=== PATIENT | male | born 1955 | race Caucasian/White ===

== ENCOUNTER 2022-11-01 15:27 | Inpatient (IN) | payer MEDICARE, OTHER ==
[~2022-11-01] VITALS: Ht 175.3 cm; Wt 77.0 kg
[2022-11-01] MEDS ORDERED: OxyCODONE HCL/ACETAMINOPHEN 10-325 MG TABLET PO PRN (20:15)
[2022-11-01] MEDS ORDERED: NITROGLYCERIN 0.4 MG SUBLINGUAL TABLET #25 SL PRN (20:15)
[2022-11-01 21:00] VITALS: BP 95/46
[2022-11-01] MEDS ORDERED: MELATONIN 5 MG TABLET PO SCH (21:00)
[2022-11-01] MEDS: METOPROLOL TARTRATE 25 MG TABLET PO SCH (21:00)
[2022-11-01] MEDS ORDERED: DEXTROSE 50%-WATER 25 GM/50 ML SYRINGE IVP PRN (21:00)
[2022-11-01 21:40] LABS: GLUCOMETER DEV NAME(LOC) 2WR.2B; GLUCOSE,POINT OF CARE 173 MG/DL (70-110)
[2022-11-01] MEDS: DOCUSATE SODIUM 100 MG CAPSULE PO SCH (21:53)
[2022-11-01] MEDS: LevETIRAcetam 500 MG TABLET PO SCH (21:54)
[2022-11-01] MEDS: ATORVASTATIN CALCIUM 20 MG TABLET PO SCH (21:54)
[2022-11-01] MEDS: SENNOSIDES 8.6 MG TABLET PO SCH (21:54)
[2022-11-01] MEDS: ETHYL ALCOHOL 62% ANTISEPTIC NASAL SANITIZER 0.6 ML AMPUL NASAL SCH (22:08)
[2022-11-01] MEDS: INSULIN LISPRO 100 UNITS/ML SQ PRN (22:15)
[2022-11-02] MEDS: ACETAMINOPHEN 325 MG TABLET PO SCH ×4 (00:16→23:41)
[2022-11-02] MEDS: HEPARIN SODIUM,PORCINE 5,000 UNITS/ML VIAL SQ SCH ×4 (00:16→23:42)
[2022-11-02] MEDS ORDERED: PNEUMOCOCCAL VACCINE POLYVALENT 0.5 ML VIAL [PPSV23] IM. ONE (05:15)
[2022-11-02 07:01] LABS: GLUCOMETER DEV NAME(LOC) 2WR.2B; GLUCOSE,POINT OF CARE 149 MG/DL (70-110)
[2022-11-02 07:29] LABS: BASOPHILS % (AUTO) 0.8 % (0.0-2.0); EOSINOPHILS % (AUTO) 1.7 % (1.0-6.0); HEMOGLOBIN 10.2 g/dL (13.5-17.5); LYMPHOCYTES # (AUTO) 1.7 K/uL (1.0-4.8); LYMPHOCYTES % (AUTO) 35.3 % (22.0-44.0); MEAN CORPUSCULAR HEMOGLOBIN 28.8 pg (26.0-34.0); MEAN CORPUSCULAR HGB CONC 32.9 G/dL (31.0-37.0); MEAN CORPUSCULAR VOLUME 88 fL (80-100); MONOCYTES # (AUTO) 0.4 K/uL (0.1-1.0); MONOCYTES % (AUTO) 7.3 % (2.0-9.0); NEUTROPHILS # (AUTO) 2.7 K/uL (1.8-7.7); NEUTROPHILS % (AUTO) 54.9 % (40.0-70.0); PLATELET COUNT (AUTO) 291 K/uL (150-450); RED BLOOD CELL COUNT(AUTO) 3.53 MIL/uL (4.50-5.90); RED CELL DISTRIBUTION WIDTH 13.7 % (11.5-14.5)
[2022-11-02 07:51] LABS: ALANINE AMINOTRANSFERASE 21 U/L (12-78); ALBUMIN 3.6 g/dL (3.4-5.0); ALKALINE PHOSPHATASE 66 U/L (46-116); ANION GAP 9 mmol/L (8-16); ASPARTATE AMINOTRANSFERASE 16 U/L (15-37); BILIRUBIN,TOTAL 0.3 mg/dL (0.1-1.0); CALCIUM, TOTAL 9.5 mg/dL (8.8-10.5); CARBON DIOXIDE 24 mmol/L (22-29); CHLORIDE 106 mmol/L (98-107); CREATININE 0.77 mg/dL (0.60-1.30); GLOMERULAR FILTR. RATE CALC > 60 mL/min (>60); GLUCOSE,RANDOM 169 mg/dL (70-110); SODIUM SERUM 139 mmol/L (136-145); TOTAL PROTEIN, SERUM 7.2 g/dL (6.4-8.2); UREA NITROGEN, BLOOD 18 mg/dL (7-18)
[2022-11-02] MEDS: LISINOPRIL 5 MG TABLET PO SCH (08:25)
[2022-11-02] MEDS: TAMSULOSIN HCL 0.4 MG CAPSULE PO SCH (08:25)
[2022-11-02] MEDS: CHOLECALCIFEROL (VIT D3) 2,000 UNITS [50 MCG] TABLET PO SCH (08:25)
[2022-11-02] MEDS: DOCUSATE SODIUM 100 MG CAPSULE PO SCH ×2 (08:25→20:53)
[2022-11-02] MEDS: LevETIRAcetam 500 MG TABLET PO SCH ×2 (08:25→20:53)
[2022-11-02] MEDS: METOPROLOL TARTRATE 25 MG TABLET PO SCH ×2 (08:25→20:53)
[2022-11-02] MEDS: POLYETHYLENE GLYCOL 3350 17 GM PACKET PO SCH (08:25)
[2022-11-02] MEDS: PredniSONE 10 MG TABLET PO SCH (08:26)
[2022-11-02] MEDS: ETHYL ALCOHOL 62% ANTISEPTIC NASAL SANITIZER 0.6 ML AMPUL NASAL SCH ×2 (08:26→21:01)
[2022-11-02] MEDS: INSULIN LISPRO 100 UNITS/ML SQ SCH ×3 (08:53→18:14)
[2022-11-02] MEDS: INSULIN LISPRO 100 UNITS/ML SQ PRN ×3 (08:54→18:15)
[2022-11-02] MEDS ORDERED: PredniSONE 10 MG TABLET PO SCH (09:00)
[2022-11-02 09:10] VITALS: BP 111/72
[2022-11-02] MEDS ORDERED: INSULIN GLARGINE,HUM.REC.ANLOG 100 UNITS/ML SQ SCH (12:00)
[2022-11-02 12:26] LABS: GLUCOMETER DEV NAME(LOC) 2WR.2B; GLUCOSE,POINT OF CARE 270 MG/DL (70-110)
[2022-11-02 18:06] LABS: GLUCOMETER DEV NAME(LOC) 2WR.2B; GLUCOSE,POINT OF CARE 174 MG/DL (70-110)
[2022-11-02] MEDS: SENNOSIDES 8.6 MG TABLET PO SCH (20:53)
[2022-11-02] MEDS: ATORVASTATIN CALCIUM 20 MG TABLET PO SCH (20:53)
[2022-11-02] MEDS: GABAPENTIN 300 MG CAPSULE PO SCH (20:53)
[2022-11-02] MEDS: MELATONIN 5 MG TABLET PO SCH (20:54)
[2022-11-02 21:00] VITALS: BP 116/62
[2022-11-02 21:56] LABS: GLUCOMETER DEV NAME(LOC) 2WR.2B; GLUCOSE,POINT OF CARE 136 MG/DL (70-110)
[2022-11-03 06:11] LABS: GLUCOMETER DEV NAME(LOC) 2WR.1C; GLUCOSE,POINT OF CARE 148 MG/DL (70-110)
[2022-11-03] MEDS: INSULIN LISPRO 100 UNITS/ML SQ PRN ×4 (08:52→22:27)
[2022-11-03] MEDS: INSULIN LISPRO 100 UNITS/ML SQ SCH ×3 (08:56→18:04)
[2022-11-03] MEDS: POLYETHYLENE GLYCOL 3350 17 GM PACKET PO SCH (09:00)
[2022-11-03] MEDS: DOCUSATE SODIUM 100 MG CAPSULE PO SCH ×3 (09:00→22:20)
[2022-11-03 09:02] VITALS: BP 114/78
[2022-11-03] MEDS: ACETAMINOPHEN 325 MG TABLET PO SCH ×3 (09:04→23:34)
[2022-11-03] MEDS: PredniSONE 10 MG TABLET PO SCH (09:05)
[2022-11-03] MEDS: HEPARIN SODIUM,PORCINE 5,000 UNITS/ML VIAL SQ SCH ×3 (09:05→23:34)
[2022-11-03] MEDS: ETHYL ALCOHOL 62% ANTISEPTIC NASAL SANITIZER 0.6 ML AMPUL NASAL SCH ×2 (09:05→22:16)
[2022-11-03] MEDS: CHOLECALCIFEROL (VIT D3) 2,000 UNITS [50 MCG] TABLET PO SCH (09:06)
[2022-11-03] MEDS: LISINOPRIL 5 MG TABLET PO SCH (09:06)
[2022-11-03] MEDS: METOPROLOL TARTRATE 25 MG TABLET PO SCH ×2 (09:07→22:19)
[2022-11-03] MEDS: LevETIRAcetam 500 MG TABLET PO SCH ×2 (09:07→22:17)
[2022-11-03] MEDS: TAMSULOSIN HCL 0.4 MG CAPSULE PO SCH (09:07)
[2022-11-03] MEDS ORDERED: CHOLECALCIFEROL (VIT D3) 2,000 UNITS [50 MCG] TABLET PO SCH (10:00)
[2022-11-03] MEDS: FOLIC ACID 1 MG TABLET PO SCH (10:26)
[2022-11-03] MEDS: PANTOPRAZOLE SODIUM 40 MG DR TABLET PO SCH (13:00)
[2022-11-03] MEDS: MULTIVITAMINS WITH MINERALS, THERAPEUTIC TABLET PO SCH (13:00)
[2022-11-03] MEDS: INSULIN GLARGINE,HUM.REC.ANLOG 100 UNITS/ML SQ SCH (13:02)
[2022-11-03 13:36] LABS: GLUCOMETER DEV NAME(LOC) 2WR.2B; GLUCOSE,POINT OF CARE 162 MG/DL (70-110)
[2022-11-03] MEDS: CHLORHEXIDINE GLUCONATE 4% 118 ML TOPICAL LIQUID TP SCH (16:07)
[2022-11-03 17:17] LABS: GLUCOMETER DEV NAME(LOC) 2WR.2B; GLUCOSE,POINT OF CARE 253 MG/DL (70-110)
[2022-11-03 21:00] VITALS: BP 93/59
[2022-11-03 21:05] VITALS: BP 119/66
[2022-11-03 21:45] LABS: GLUCOMETER DEV NAME(LOC) 2WR.1C; GLUCOSE,POINT OF CARE 260 MG/DL (70-110)
[2022-11-03] MEDS: CALCIUM CIT/VITAMIN D3 200 MG-250 UNITS[6.25MCG] TABLET PO SCH (22:17)
[2022-11-03] MEDS: SENNOSIDES 8.6 MG TABLET PO SCH (22:17)
[2022-11-03] MEDS: GABAPENTIN 300 MG CAPSULE PO SCH (22:17)
[2022-11-03] MEDS: ATORVASTATIN CALCIUM 20 MG TABLET PO SCH (22:17)
[2022-11-03] MEDS: MELATONIN 5 MG TABLET PO SCH (22:17)
[2022-11-04 07:16] LABS: GLUCOMETER DEV NAME(LOC) 2WR.2B; GLUCOSE,POINT OF CARE 128 MG/DL (70-110)
[2022-11-04] MEDS: HEPARIN SODIUM,PORCINE 5,000 UNITS/ML VIAL SQ SCH ×2 (08:18→16:00)
[2022-11-04] MEDS: POLYETHYLENE GLYCOL 3350 17 GM PACKET PO SCH (08:20)
[2022-11-04] MEDS: FOLIC ACID 1 MG TABLET PO SCH (08:21)
[2022-11-04] MEDS: MULTIVITAMINS WITH MINERALS, THERAPEUTIC TABLET PO SCH (08:21)
[2022-11-04] MEDS: METOPROLOL TARTRATE 25 MG TABLET PO SCH (08:21)
[2022-11-04] MEDS: PANTOPRAZOLE SODIUM 40 MG DR TABLET PO SCH (08:21)
[2022-11-04] MEDS: CALCIUM CIT/VITAMIN D3 200 MG-250 UNITS[6.25MCG] TABLET PO SCH (08:21)
[2022-11-04] MEDS: LevETIRAcetam 500 MG TABLET PO SCH (08:21)
[2022-11-04] MEDS: DOCUSATE SODIUM 100 MG CAPSULE PO SCH (08:21)
[2022-11-04] MEDS: ETHYL ALCOHOL 62% ANTISEPTIC NASAL SANITIZER 0.6 ML AMPUL NASAL SCH (08:22)
[2022-11-04] MEDS: ACETAMINOPHEN 325 MG TABLET PO SCH ×2 (08:22→16:00)
[2022-11-04] MEDS: CHLORHEXIDINE GLUCONATE 4% 118 ML TOPICAL LIQUID TP SCH (08:22)
[2022-11-04] MEDS: LISINOPRIL 5 MG TABLET PO SCH (08:24)
[2022-11-04] MEDS: TAMSULOSIN HCL 0.4 MG CAPSULE PO SCH (08:24)
[2022-11-04] MEDS: PredniSONE 10 MG TABLET PO SCH (08:25)
[2022-11-04] MEDS: INSULIN LISPRO 100 UNITS/ML SQ SCH ×2 (08:37→13:12)
[2022-11-04 08:57] VITALS: BP 118/75
[2022-11-04] MEDS ORDERED: CHOLECALCIFEROL (VIT D3) 2,000 UNITS [50 MCG] TABLET PO SCH (09:00)
[2022-11-04 11:51] LABS: GLUCOMETER DEV NAME(LOC) 2WR.1C; GLUCOSE,POINT OF CARE 192 MG/DL (70-110)
[2022-11-04] MEDS: INSULIN GLARGINE,HUM.REC.ANLOG 100 UNITS/ML SQ SCH (13:11)
[2022-11-04] MEDS: INSULIN LISPRO 100 UNITS/ML SQ PRN (13:12)
== END 2022-11-04 16:00 | DRG 57 ==
LOC: 2WR 18:46
PROVIDERS: ADMIT Physical Medicine & Rehabilitation; ATTEND Physical Medicine & Rehabilitation
PROC: 3E0234Z Introduction of Serum, Toxoid and Vaccine into Muscle, Percutaneous Approach (ICD-10-PCS; principal; 2022-11-04)
DX: G91.9 Hydrocephalus, unspecified (principal); C71.9 Malignant neoplasm of brain, unspecified; M86.8X7 Other osteomyelitis, ankle and foot; E11.51 Type 2 diabetes mellitus with diabetic peripheral angiopathy without gangrene; I10 Essential (primary) hypertension; E78.00 Pure hypercholesterolemia, unspecified; R33.8 Other retention of urine; F32.A Depression, unspecified; N40.1 Benign prostatic hyperplasia with lower urinary tract symptoms; E11.42 Type 2 diabetes mellitus with diabetic polyneuropathy; D64.9 Anemia, unspecified; E11.69 Type 2 diabetes mellitus with other specified complication; Z53.20 Procedure and treatment not carried out because of patient's decision for unspecified reasons; R26.81 Unsteadiness on feet; R41.89 Other symptoms and signs involving cognitive functions and awareness; R47.1 Dysarthria and anarthria; R53.81 Other malaise; R45.87 Impulsiveness; F11.10 Opioid abuse, uncomplicated; Z90.79 Acquired absence of other genital organ(s); Z87.891 Personal history of nicotine dependence; Z86.73 Personal history of transient ischemic attack (TIA), and cerebral infarction without residual deficits; Z83.3 Family history of diabetes mellitus; Z79.4 Long term (current) use of insulin; Z85.841 Personal history of malignant neoplasm of brain; Z86.718 Personal history of other venous thrombosis and embolism
CPT/HCPCS: 80053; 82962; 85025; 87081; 90732; 92507; 92523; 92526; 97163; 97167; 97530; 97535; 99285; J1644; J1815; Q9967

== ENCOUNTER 2024-07-09 16:52 | Inpatient (IN) | payer MEDICARE, OTHER ==
[~2024-07-09] VITALS: Ht 172.7 cm; Wt 75.3 kg
[2024-07-09 20:30] VITALS: BP 124/69; PULSE 86; RESP 18; TEMP 97.9; O2SAT 94
[2024-07-09] MEDS ORDERED: ACETAMINOPHEN 325 MG TABLET PO PRN (20:30)
[2024-07-09] MEDS ORDERED: MELATONIN 3 MG TABLET PO PRN (20:30)
[2024-07-09] MEDS ORDERED: DOCUSATE SODIUM 283 MG/5 ML MINI-ENEMA PR PRN (20:30)
[2024-07-09] MEDS ORDERED: DEXTROSE 50%-WATER 25 GM/50 ML SYRINGE IVP PRN (20:45)
[2024-07-09 21:00] VITALS: O2SAT 94
[2024-07-09] MEDS ORDERED: SENNOSIDES 8.6 MG TABLET PO SCH (21:00)
[2024-07-09] MEDS ORDERED: DOCUSATE SODIUM 100 MG CAPSULE PO SCH (21:00)
[2024-07-09] MEDS: LevETIRAcetam 500 MG TABLET PO SCH (23:33)
[2024-07-09] MEDS: FAMOTIDINE 20 MG TABLET PO SCH (23:33)
[2024-07-09] MEDS: INSULIN LISPRO 100 UNITS/ML SQ SCH (23:35)
[2024-07-09] MEDS: ETHYL ALCOHOL 62% ANTISEPTIC NASAL SANITIZER 0.6 ML AMPUL NASAL SCH (23:45)
[2024-07-09] MEDS: LATANOPROST 0.005% 2.5 ML OPHTHALMIC SOLUTION OU SCH (23:58)
[2024-07-09] MEDS: DEXAMETHASONE 4 MG TABLET PO SCH (23:59)
[2024-07-10 00:07] LABS: GLUCOMETER DEV NAME(LOC) 2WR.1D; GLUCOSE,POINT OF CARE 219 MG/DL (70-110)
[2024-07-10] MEDS: -PHARMACY VACCINE NOTE- MISC ONE (02:09)
[2024-07-10 07:16] LABS: GLUCOMETER DEV NAME(LOC) 2WR.2B; GLUCOSE,POINT OF CARE 182 MG/DL (70-110)
[2024-07-10 08:05] VITALS: BP 128/70; PULSE 88; RESP 18; TEMP 98.2; O2SAT 98
[2024-07-10] MEDS: POLYETHYLENE GLYCOL 3350 17 GM PACKET PO SCH (08:10)
[2024-07-10] MEDS: TAMSULOSIN HCL 0.4 MG CAPSULE PO SCH (08:10)
[2024-07-10] MEDS: MEMANTINE HCL 10 MG TABLET PO SCH (08:12)
[2024-07-10] MEDS: METOPROLOL TARTRATE 25 MG TABLET PO SCH (08:13)
[2024-07-10] MEDS: ATORVASTATIN CALCIUM 20 MG TABLET PO SCH (08:13)
[2024-07-10] MEDS: FOLIC ACID 1 MG TABLET PO SCH (08:14)
[2024-07-10] MEDS: FINASTERIDE 5 MG TABLET PO SCH (09:33)
[2024-07-10] MEDS: PREGABALIN 50 MG CAPSULE PO SCH (09:33)
[2024-07-10] MEDS: SENNOSIDES 8.6 MG TABLET PO SCH (09:33)
[2024-07-10] MEDS: CHOLECALCIFEROL (VIT D3) 2,000 UNITS [50 MCG] TABLET PO SCH (09:38)
[2024-07-10] MEDS: MULTIVITAMINS, THERAPEUTIC TABLET PO SCH (09:38)
[2024-07-10] MEDS: INSULIN LISPRO 100 UNITS/ML SQ SCH (10:07)
[2024-07-10 10:18] LABS: BASOPHILS % (AUTO) 0.1 % (0.0-2.0); EOSINOPHILS % (AUTO) 0.3 % (1.0-6.0); HEMOGLOBIN 17.2 g/dL (13.5-17.5); LYMPHOCYTES # (AUTO) 0.8 K/uL (1.0-4.8); LYMPHOCYTES % (AUTO) 9.5 % (22.0-44.0); MEAN CORPUSCULAR HEMOGLOBIN 30.7 pg (26.0-34.0); MEAN CORPUSCULAR HGB CONC 33.8 G/dL (31.0-37.0); MEAN CORPUSCULAR VOLUME 91 fL (80-100); MONOCYTES # (AUTO) 0.5 K/uL (0.1-1.0); MONOCYTES % (AUTO) 5.9 % (2.0-9.0); NEUTROPHILS # (AUTO) 6.7 K/uL (1.8-7.7); NEUTROPHILS % (AUTO) 84.2 % (40.0-70.0); PLATELET COUNT (AUTO) 132 K/uL (150-450); RED CELL DISTRIBUTION WIDTH 12.5 % (11.5-14.5)
[2024-07-10 10:22] LABS: ALANINE AMINOTRANSFERASE 24 U/L (12-78); ALBUMIN 3.5 g/dL (3.4-5.0); ALKALINE PHOSPHATASE 69 U/L (46-116); ANION GAP 9 mmol/L (8-16); ASPARTATE AMINOTRANSFERASE 11 U/L (15-37); BILIRUBIN,TOTAL 0.6 mg/dL (0.1-1.0); CALCIUM, TOTAL 8.5 mg/dL (8.8-10.5); CARBON DIOXIDE 26 mmol/L (22-29); CHLORIDE 102 mmol/L (98-107); CREATININE 0.82 mg/dL (0.60-1.30); GLOMERULAR FILTR. RATE CALC > 60 mL/min (>60); GLUCOSE,RANDOM 191 mg/dL (70-110); POTASSIUM 4.2 mmol/L (3.5-5.1); SODIUM SERUM 137 mmol/L (136-145); UREA NITROGEN, BLOOD 25 mg/dL (7-18)
[2024-07-10 11:55] LABS: GLUCOMETER DEV NAME(LOC) 2WR.1D; GLUCOSE,POINT OF CARE 332 MG/DL (70-110)
[2024-07-10] MEDS: INSULIN GLARGINE,HUM.REC.ANLOG 100 UNITS/ML SQ SCH (12:24)
[2024-07-10 12:35] VITALS: BP 130/74; PULSE 75; RESP 18; TEMP 98.6; O2SAT 97
[2024-07-10 18:01] LABS: GLUCOMETER DEV NAME(LOC) 2WR.1D; GLUCOSE,POINT OF CARE 220 MG/DL (70-110)
[2024-07-10 18:37] VITALS: O2SAT 98
[2024-07-10 20:30] VITALS: BP 97/66; PULSE 84; RESP 18; TEMP 98.1; O2SAT 96
[2024-07-10 21:00] VITALS: O2SAT 96
[2024-07-10] MEDS: DOCUSATE SODIUM 250 MG CAPSULE PO SCH (22:17)
[2024-07-10] MEDS ORDERED: DOCUSATE SODIUM 250 MG CAPSULE PO SCH (23:15)
[2024-07-11 02:41] LABS: GLUCOMETER DEV NAME(LOC) 2WR.1D; GLUCOSE,POINT OF CARE 137 MG/DL (70-110)
[2024-07-11 06:40] LABS: GLUCOMETER DEV NAME(LOC) 2WR.1D; GLUCOSE,POINT OF CARE 173 MG/DL (70-110)
[2024-07-11 08:15] VITALS: BP 115/71; PULSE 78; RESP 19; TEMP 97.7; O2SAT 97
[2024-07-11 09:52] VITALS: O2SAT 97
[2024-07-11 12:20] LABS: GLUCOMETER DEV NAME(LOC) 2WR.1D; GLUCOSE,POINT OF CARE 179 MG/DL (70-110)
[2024-07-11] MEDS: INSULIN GLARGINE,HUM.REC.ANLOG 100 UNITS/ML SQ SCH (12:28)
[2024-07-11 17:31] LABS: GLUCOMETER DEV NAME(LOC) 2WR.2B; GLUCOSE,POINT OF CARE 315 MG/DL (70-110)
[2024-07-11 20:01] VITALS: BP 124/73; PULSE 94; RESP 18; TEMP 98.8; O2SAT 96
[2024-07-11 21:40] LABS: GLUCOMETER DEV NAME(LOC) 2WR.2B; GLUCOSE,POINT OF CARE 262 MG/DL (70-110)
[2024-07-11 22:16] VITALS: O2SAT 96
[2024-07-12 00:51] LABS: APPEARANCE,URINE HAZY (CLEAR); BILIRUBIN,URINE NEGATIVE (NEGATIVE); COLOR,URINE LIGHT YELLOW (YELLOW); GLUCOSE, URINE (UA) 150-200 mg/dL (NEGATIVE); KETONES,URINE NEGATIVE (NEGATIVE); LEUKOCYTE ESTERASE ,URINE LARGE (NEGATIVE); NITRATE,URINE NEGATIVE (NEGATIVE); OCCULT BLOOD,URINE NEGATIVE (NEGATIVE); PH,URINE 5.5 (5.0-8.0); PROTEIN,URINE NEGATIVE (NEGATIVE); SPECIFIC GRAVITIY, URINE 1.007 (1.003-1.030); UROBILINOGEN,URINE <=1.0 mg/dL (<=1.0)
[2024-07-12 00:58] LABS: BACTERIA,URINE None Seen /HPF (None Seen); RBC,URINE None Seen /HPF (0-2); SQUAMOUS EPITHELIAL CELL,UR Few /LPF (None Seen); YEAST,URINE Many /HPF (None Seen)
[2024-07-12 07:05] LABS: GLUCOMETER DEV NAME(LOC) 2WR.1D; GLUCOSE,POINT OF CARE 178 MG/DL (70-110)
[2024-07-12 08:00] VITALS: BP 109/70; PULSE 73; RESP 19; TEMP 98.2; O2SAT 96
[2024-07-12] MEDS: FLUCONAZOLE 100 MG TABLET PO SCH (12:19)
[2024-07-12 12:40] LABS: GLUCOMETER DEV NAME(LOC) 2WR.2B; GLUCOSE,POINT OF CARE 120 MG/DL (70-110)
[2024-07-12 17:31] LABS: GLUCOMETER DEV NAME(LOC) 2WR.2B; GLUCOSE,POINT OF CARE 76 MG/DL (70-110)
[2024-07-12 19:15] VITALS: BP 119/69; PULSE 82; RESP 18; TEMP 98.2; O2SAT 96
[2024-07-12 21:31] LABS: GLUCOMETER DEV NAME(LOC) 2WR.1D; GLUCOSE,POINT OF CARE 241 MG/DL (70-110)
[2024-07-13 03:05] VITALS: O2SAT 96
[2024-07-13 06:56] LABS: GLUCOMETER DEV NAME(LOC) 2WR.2B; GLUCOSE,POINT OF CARE 286 MG/DL (70-110)
[2024-07-13 08:05] VITALS: BP 133/76; PULSE 78; RESP 18; TEMP 98.4; O2SAT 98
[2024-07-13 11:51] LABS: GLUCOMETER DEV NAME(LOC) 2WR.2B; GLUCOSE,POINT OF CARE 271 MG/DL (70-110)
[2024-07-13 15:07] VITALS: O2SAT 98
[2024-07-13 17:45] LABS: GLUCOMETER DEV NAME(LOC) 2WR.2B; GLUCOSE,POINT OF CARE 334 MG/DL (70-110)
[2024-07-13 20:01] VITALS: BP 132/75; PULSE 89; RESP 19; TEMP 98.2; O2SAT 97
[2024-07-14 03:06] VITALS: O2SAT 97
[2024-07-14 07:15] LABS: GLUCOMETER DEV NAME(LOC) 2WR.2B; GLUCOSE,POINT OF CARE 218 MG/DL (70-110)
[2024-07-14 08:00] VITALS: BP 124/74; PULSE 71; RESP 18; TEMP 97.9; O2SAT 99
[2024-07-14] MEDS: ASPIRIN 81 MG CHEWABLE TABLET PO SCH (08:33)
[2024-07-14 12:11] LABS: GLUCOMETER DEV NAME(LOC) 2WR.1D; GLUCOSE,POINT OF CARE 254 MG/DL (70-110)
[2024-07-14] MEDS: INSULIN GLARGINE,HUM.REC.ANLOG 100 UNITS/ML SQ SCH (12:28)
[2024-07-14 17:56] LABS: GLUCOMETER DEV NAME(LOC) 2WR.2B; GLUCOSE,POINT OF CARE 240 MG/DL (70-110)
[2024-07-14 20:00] VITALS: BP 112/64; PULSE 76; RESP 17; TEMP 98.1; O2SAT 95
[2024-07-14 20:45] LABS: GLUCOMETER DEV NAME(LOC) 2WR.1D; GLUCOSE,POINT OF CARE 281 MG/DL (70-110)
[2024-07-14] MEDS: DEXAMETHASONE 2 MG TABLET PO SCH (21:14)
[2024-07-15 07:01] LABS: GLUCOMETER DEV NAME(LOC) 2WR.2B; GLUCOSE,POINT OF CARE 217 MG/DL (70-110)
[2024-07-15 08:07] VITALS: BP 111/68; PULSE 70; RESP 19; TEMP 97.9; O2SAT 99
[2024-07-15 11:46] LABS: GLUCOMETER DEV NAME(LOC) 2WR.1D; GLUCOSE,POINT OF CARE 248 MG/DL (70-110)
[2024-07-15] MEDS: INSULIN GLARGINE,HUM.REC.ANLOG 100 UNITS/ML SQ SCH (13:05)
[2024-07-15 16:56] LABS: GLUCOMETER DEV NAME(LOC) 2WR.1D; GLUCOSE,POINT OF CARE 120 MG/DL (70-110)
[2024-07-15 19:39] VITALS: BP 107/72; PULSE 68; RESP 18; TEMP 98; O2SAT 99
[2024-07-15 21:56] LABS: GLUCOMETER DEV NAME(LOC) 2WR.2B; GLUCOSE,POINT OF CARE 136 MG/DL (70-110)
[2024-07-15 22:18] VITALS: O2SAT 99
[2024-07-16 07:07] LABS: GLUCOMETER DEV NAME(LOC) 2WR.2B; GLUCOSE,POINT OF CARE 207 MG/DL (70-110)
[2024-07-16 08:05] VITALS: BP 130/68; PULSE 70; RESP 19; TEMP 98; O2SAT 98
[2024-07-16 11:04] VITALS: O2SAT 98
[2024-07-16] MEDS ORDERED: INSULIN GLARGINE,HUM.REC.ANLOG 100 UNITS/ML SQ SCH (12:00)
[2024-07-16 12:16] LABS: GLUCOMETER DEV NAME(LOC) 2WR.1D; GLUCOSE,POINT OF CARE 199 MG/DL (70-110)
[2024-07-16 17:21] LABS: GLUCOMETER DEV NAME(LOC) 2WR.1D; GLUCOSE,POINT OF CARE 141 MG/DL (70-110)
[2024-07-16 20:02] VITALS: BP 123/75; PULSE 82; RESP 20; TEMP 97.9; O2SAT 97
[2024-07-16 23:51] LABS: GLUCOMETER DEV NAME(LOC) 2WR.2B; GLUCOSE,POINT OF CARE 166 MG/DL (70-110)
[2024-07-17 00:30] VITALS: O2SAT 97
[2024-07-17] MEDS ORDERED: ASPI-1450 PO (02:02)
[2024-07-17] MEDS ORDERED: FOLI-130 PO (02:03)
[2024-07-17] MEDS ORDERED: TAMS0.4C94 PO (02:03)
[2024-07-17] MEDS ORDERED: LEVE-71 PO (04:53)
[2024-07-17] MEDS ORDERED: METO25 PO (04:54)
[2024-07-17] MEDS ORDERED: ATOR20TA PO (04:54)
[2024-07-17] MEDS ORDERED: PREG50 PO (04:55)
[2024-07-17] MEDS ORDERED: MEMA10TA24 PO (04:55)
[2024-07-17] MEDS ORDERED: FAMO20 PO (04:56)
[2024-07-17] MEDS ORDERED: FINA-27 PO (04:56)
[2024-07-17] MEDS ORDERED: MULT-14 PO (04:59)
[2024-07-17] MEDS ORDERED: CHOL200059 PO (04:59)
[2024-07-17] MEDS ORDERED: XALA2.5OS OU (05:05)
[2024-07-17] MEDS ORDERED: DOCU-412 PO (05:07)
[2024-07-17] MEDS ORDERED: POLY17PO47 PO (05:10)
[2024-07-17 07:01] LABS: GLUCOMETER DEV NAME(LOC) 2WR.2B; GLUCOSE,POINT OF CARE 244 MG/DL (70-110)
[2024-07-17 08:00] VITALS: BP 118/69; PULSE 70; RESP 19; TEMP 97.8; O2SAT 98
[2024-07-17 11:51] LABS: GLUCOMETER DEV NAME(LOC) 2WR.1D; GLUCOSE,POINT OF CARE 102 MG/DL (70-110)
[2024-07-17 13:46] LABS: GLUCOMETER DEV NAME(LOC) 2WR.1D; GLUCOSE,POINT OF CARE 231 MG/DL (70-110)
[2024-07-17 17:41] LABS: GLUCOMETER DEV NAME(LOC) 2WR.1D; GLUCOSE,POINT OF CARE 130 MG/DL (70-110)
[2024-07-17 20:00] VITALS: BP 115/70; PULSE 82; RESP 18; TEMP 97.5; O2SAT 96
[2024-07-18 03:26] LABS: GLUCOMETER DEV NAME(LOC) 2WR.1D; GLUCOSE,POINT OF CARE 100 MG/DL (70-110)
[2024-07-18 08:26] LABS: GLUCOMETER DEV NAME(LOC) 2WR.1D; GLUCOSE,POINT OF CARE 165 MG/DL (70-110)
[2024-07-18 09:05] VITALS: BP 133/76; PULSE 66; RESP 18; TEMP 97.6; O2SAT 97
[2024-07-18 09:05] LABS: ANION GAP 6 mmol/L (8-16); CALCIUM, TOTAL 8.3 mg/dL (8.8-10.5); CARBON DIOXIDE 25 mmol/L (22-29); CHLORIDE 101 mmol/L (98-107); CREATININE 0.91 mg/dL (0.60-1.30); GLOMERULAR FILTR. RATE CALC > 60 mL/min (>60); GLUCOSE,RANDOM 190 mg/dL (70-110); POTASSIUM 4.2 mmol/L (3.5-5.1); SODIUM SERUM 132 mmol/L (136-145); UREA NITROGEN, BLOOD 27 mg/dL (7-18)
[2024-07-18 09:09] LABS: BASOPHILS % (AUTO) 0.2 % (0.0-2.0); EOSINOPHILS % (AUTO) 0.1 % (1.0-6.0); HEMOGLOBIN 16.1 g/dL (13.5-17.5); LYMPHOCYTES # (AUTO) 0.7 K/uL (1.0-4.8); LYMPHOCYTES % (AUTO) 7.5 % (22.0-44.0); MEAN CORPUSCULAR HEMOGLOBIN 30.5 pg (26.0-34.0); MEAN CORPUSCULAR HGB CONC 32.8 G/dL (31.0-37.0); MEAN CORPUSCULAR VOLUME 93 fL (80-100); MONOCYTES # (AUTO) 0.4 K/uL (0.1-1.0); MONOCYTES % (AUTO) 4.2 % (2.0-9.0); PLATELET COUNT (AUTO) 117 K/uL (150-450); RED BLOOD CELL COUNT(AUTO) 5.28 MIL/uL (4.50-5.90); RED CELL DISTRIBUTION WIDTH 13.1 % (11.5-14.5); WHITE BLOOD COUNT (AUTO) 9.1 K/uL (4.5-11.0)
[2024-07-18 10:59] VITALS: O2SAT 97
[2024-07-18 12:56] LABS: GLUCOMETER DEV NAME(LOC) 2WR.1D; GLUCOSE,POINT OF CARE 188 MG/DL (70-110)
[2024-07-18 17:06] LABS: GLUCOMETER DEV NAME(LOC) 2WR.1D; GLUCOSE,POINT OF CARE 250 MG/DL (70-110)
[2024-07-18 23:00] LABS: GLUCOMETER DEV NAME(LOC) 2WR.2B; GLUCOSE,POINT OF CARE 239 MG/DL (70-110)
[2024-07-18 23:48] VITALS: BP 121/64; PULSE 78; RESP 18; TEMP 98.2; O2SAT 100
[2024-07-19 00:09] VITALS: O2SAT 100
[2024-07-19 06:56] LABS: GLUCOMETER DEV NAME(LOC) 2WR.2B; GLUCOSE,POINT OF CARE 230 MG/DL (70-110)
[2024-07-19 08:00] VITALS: BP 139/84; PULSE 69; RESP 17; TEMP 97.6; O2SAT 98
[2024-07-19 11:51] LABS: GLUCOMETER DEV NAME(LOC) 2WR.2B; GLUCOSE,POINT OF CARE 123 MG/DL (70-110)
[2024-07-19 13:15] LABS: GLUCOMETER DEV NAME(LOC) 2WR.2B; GLUCOSE,POINT OF CARE 146 MG/DL (70-110)
[2024-07-19 17:21] LABS: GLUCOMETER DEV NAME(LOC) 2WR.1D; GLUCOSE,POINT OF CARE 96 MG/DL (70-110)
[2024-07-19 18:40] LABS: GLUCOMETER DEV NAME(LOC) 2WR.2B; GLUCOSE,POINT OF CARE 105 MG/DL (70-110)
[2024-07-19 20:01] LABS: GLUCOMETER DEV NAME(LOC) 2WR.2B; GLUCOSE,POINT OF CARE 141 MG/DL (70-110)
[2024-07-19 21:33] VITALS: O2SAT 96
[2024-07-19 21:48] VITALS: BP 113/67; PULSE 75; RESP 20; TEMP 97.2; O2SAT 96
[2024-07-20 06:41] LABS: GLUCOMETER DEV NAME(LOC) 2WR.2B; GLUCOSE,POINT OF CARE 119 MG/DL (70-110)
[2024-07-20 08:05] VITALS: BP 138/63; PULSE 72; RESP 18; TEMP 98.3; O2SAT 98
[2024-07-20] MEDS ORDERED: METO25 PO (11:43)
[2024-07-20] MEDS ORDERED: CHOL200059 PO (11:43)
[2024-07-20] MEDS ORDERED: INSLAN SQ (11:43)
[2024-07-20] MEDS ORDERED: ASPI-1450 PO (11:43)
[2024-07-20] MEDS ORDERED: XALA2.5OS OU (11:43)
[2024-07-20] MEDS ORDERED: DEXA2 PO (11:43)
[2024-07-20] MEDS ORDERED: FINA-27 PO (11:43)
[2024-07-20] MEDS ORDERED: PREG50 PO (11:43)
[2024-07-20] MEDS ORDERED: INSU100V SQ (11:43)
[2024-07-20] MEDS ORDERED: MEMA10TA24 PO (11:43)
[2024-07-20] MEDS ORDERED: TAMS0.4C94 PO (11:43)
[2024-07-20] MEDS ORDERED: FOLI-130 PO (11:43)
[2024-07-20] MEDS ORDERED: LEVE-71 PO (11:43)
[2024-07-20] MEDS ORDERED: FAMO20 PO (11:43)
[2024-07-20] MEDS ORDERED: ATOR20TA PO (11:43)
[2024-07-20 12:10] LABS: GLUCOMETER DEV NAME(LOC) 2WR.1D; GLUCOSE,POINT OF CARE 145 MG/DL (70-110)
[2024-07-20 13:55] VITALS: O2SAT 98
[2024-07-20 17:05] LABS: GLUCOMETER DEV NAME(LOC) 2WR.1D; GLUCOSE,POINT OF CARE 229 MG/DL (70-110)
[2024-07-20 21:00] VITALS: BP 114/60; PULSE 78; RESP 18; TEMP 97.7; O2SAT 97
[2024-07-20 23:32] VITALS: O2SAT 97
[2024-07-21 04:35] LABS: GLUCOMETER DEV NAME(LOC) 2WR.1D; GLUCOSE,POINT OF CARE 199 MG/DL (70-110)
[2024-07-21 07:05] LABS: GLUCOMETER DEV NAME(LOC) 2WR.1D; GLUCOSE,POINT OF CARE 171 MG/DL (70-110)
[2024-07-21 08:00] VITALS: BP 128/72; PULSE 70; RESP 19; TEMP 98.1; O2SAT 97
[2024-07-21] MEDS ORDERED: DEXAMETHASONE 2 MG TABLET PO SCH (09:00)
[2024-07-21 10:00] VITALS: O2SAT 97
[2024-07-21 12:11] LABS: GLUCOMETER DEV NAME(LOC) 2WR.1D; GLUCOSE,POINT OF CARE 167 MG/DL (70-110)
== END 2024-07-21 13:30 | disposition home health service (06) | DRG 57 ==
LOC: 2WR 23:00
PROVIDERS: ADMIT Physical Medicine & Rehabilitation; ATTEND Physical Medicine & Rehabilitation
DX: G81.91 Hemiplegia, unspecified affecting right dominant side (principal); C71.1 Malignant neoplasm of frontal lobe; B37.49 Other urogenital candidiasis; M86.8X7 Other osteomyelitis, ankle and foot; G40.909 Epilepsy, unspecified, not intractable, without status epilepticus; I10 Essential (primary) hypertension; R32 Unspecified urinary incontinence; T66.XXXA Radiation sickness, unspecified, initial encounter; E78.5 Hyperlipidemia, unspecified; E11.51 Type 2 diabetes mellitus with diabetic peripheral angiopathy without gangrene; D69.6 Thrombocytopenia, unspecified; D64.9 Anemia, unspecified; E11.40 Type 2 diabetes mellitus with diabetic neuropathy, unspecified; Z74.09 Other reduced mobility; M54.10 Radiculopathy, site unspecified; R41.89 Other symptoms and signs involving cognitive functions and awareness; N40.0 Benign prostatic hyperplasia without lower urinary tract symptoms; R41.0 Disorientation, unspecified; E11.42 Type 2 diabetes mellitus with diabetic polyneuropathy; R15.9 Full incontinence of feces; R45.87 Impulsiveness; R53.83 Other fatigue; Z85.841 Personal history of malignant neoplasm of brain; Z86.718 Personal history of other venous thrombosis and embolism; Z79.4 Long term (current) use of insulin; Z83.3 Family history of diabetes mellitus; Z79.899 Other long term (current) drug therapy
CPT/HCPCS: 80048; 80053; 81001; 82962; 83036; 85025; 87081; 92507; 92523; 93970; 97110; 97112; 97116; 97163; 97167; 97530; 97535; 99366; J1815; J8540